=== PATIENT | female | born 1950 | race Caucasian/White ===

== ENCOUNTER → 2016-09-28 | Outpatient (CLI) | payer OTHER, BC | LOC: MMPC 11:11 | PROVIDERS: ATTEND Surgery | DX: Z80.0 Family history of malignant neoplasm of digestive organs (principal) | CPT/HCPCS: 99202; G0463 ==

== ENCOUNTER 2016-10-13 07:54 | Day surgery (SDC) | payer OTHER, BC ==
[~2016-10-13 07:54] MED LIST: LIDOCAINE 2% VISCOUS(20 MG/1 ML) - 15 ML UD CUP PO ONE; LIDOCAINE W/ SODIUM BICARB 0.5 ML SYR ONE; Lactated Ringers 1,000 ML PRIMARY IV ONE; MIDAZOLAM 5 MG/1 ML ONE
--- NOTE | 2016-10-13 09:12 | GEN.OPNOTE ---
EGD / Colonoscopy Report Surgery Date: 10/13/16 Preoperative Diagnosis: Family history of esophageal cancer. Family history of colon cancer. Postoperative Diagnosis: Same. Procedure: #1 Esophagogastroduodenoscopy with biopsy. #2 Complete colonoscopy. Surgeon: Juice Kumar MD Anesthesia Provider: Aguila Bauer CRNA Anesthesia Type: MAC Indications: See preoperative diagnosis. EGD Findings: Esophagus: [Normal] GE Junction : [Slight irregularity, small hiatal hernia] Fundus : [Fundic gland polyps] Body : [Fundic gland polyps] Prepyloric : [Normal] Small Intestine : [Normal] A lubricated flexible upper endoscope was inserted and passed through the esophagus and stomach into the duodenum. Duodenum and duodenal bulb were unremarkable. Pyloric channel was widely patent. Other than fundic gland polyps the stomach was normal. Biopsies were taken of the polyps. Hemostasis was assured. The scope was withdrawn into the distal esophagus. There was a small hiatal hernia. There is some slight irregularity of the Z line and biopsies were taken. Hemostasis was assured. The scope was withdrawn through the remainder of a normal-appearing esophagus and brought through the hypopharynx under suction completing that portion of the procedure. Colonoscopy Findings: Prep : [Very good] Cecum : [Normal] Ascending : [Normal] Transverse : [Normal] Sigmoid : [Normal] Rectum : [Normal] Digital Rectal Exam : [Mild to moderate hemorrhoidal tissue otherwise normal] A lubricated flexible colonoscope was inserted and passed to the blind end of the cecum. The blind end of the cecum and ileocecal valve were clearly seen. Air was aspirated as the scope was withdrawn. The entire colonoscopy was normal without polyp, tumor, neoplastic mass, infectious or inflammatory process. The scope was withdrawn completing the procedure. The patient tolerated the procedure well without complication. She was taken to outpatient surgery in stable condition. With her family history recommend follow-up upper and lower endoscopy every 5 years.
[2016-10-13 09:50] VITALS: TEMP 97.5
[2016-10-13 10:07] VITALS: RESP 16
== END 2016-10-13 09:46 | disposition home or self-care (01) ==
LOC: SDSC 07:54
PROVIDERS: ATTEND Surgery
DX: Z80.0 Family history of malignant neoplasm of digestive organs (principal); Z80.8 Family history of malignant neoplasm of other organs or systems; K31.7 Polyp of stomach and duodenum
CPT/HCPCS: 43239; 45378; J2704; J2250; J7120